=== PATIENT | female | born 1970 | race Caucasian/White ===

== ENCOUNTER 2017-03-18 18:26 | Emergency (ER) | payer OTHER, MEDICAID ==
[~2017-03-18] VITALS: Ht 172.7 cm; Wt 90.8 kg
[~2017-03-18 18:26] MED LIST: BACL20TA PO; CLIN150 PO; CYMB60CA PO; HYDR-3533 PO; HYDR10SO PO; IBUP800T23 PO; QUET1TAB67 PO
[2017-03-18 18:28] VITALS: BP 123/64; PULSE 117; RESP 14; TEMP 99; O2SAT 97
--- NOTE | 2017-03-18 18:51 | PD ---
HPI Chief Complaint: Psychiatric Symptoms Time Seen by Provider: 18:38 Travel History International Travel<30 days: No Contact w/Intl Traveler<30days: No Traveled to known affect area: No History of Present Illness HPI The patient is 46 years old. She reports abusing multiple drugs including cocaine and opioids. She reports suicidal ideation. She reports a plan that includes taking all of her medications. She has overdosed on medications in the past and the suicide gesture. She has no medical complaints. PFSH Past Medical History Arthritis: Yes (hips legs ankles) Asthma: No Autoimmune Disease: No Blood Disorders: No Anxiety: Yes Depression: No Heart Rhythm Problems: No Cancer: Yes (possible colon) Cardiovascular Problems: No High Cholesterol: Yes Chemotherapy: No Chest Pain: No Congestive Heart Failure: No COPD: No Cerebrovascular Accident: No Diabetes: No Diminished Hearing: No Endocrine: No Gastrointestinal Disorders: Yes (alot of pain with having a bowel movement with small amt blood) GERD: Yes Glaucoma: No Genitourinary: No Headaches: Yes Hepatitis: No Hiatal Hernia: No Heparin Induced Thrombocytopen: No Hypertension: No Immune Disorder: No Implanted Vascular Access Dvce: No Kidney Stones: No Musculoskeletal: Yes (left sprained knee osteoporsis herniated,bulging disc in the back) Neurologic: Yes (numbness pain radiating from both shoulder right arm goes numb ) Psychiatric: Yes (bi polar) Reproductive: No Respiratory: No Migraines: Yes (3 yrs) Myocardial Infarction: No Radiation Therapy: No Renal Failure: No Seizures: No Sickle Cell Disease: No Sleep Apnea: No Thyroid Disease: No Ulcer: Yes ?: Not Past Surgical History Abdominal Surgery: Yes (lap katt) AICD: No Appendectomy: No Arteriovenous Shunt: No Cardiac Surgery: No Cholecystectomy: No Ear Surgery: No Endocrine Surgery: No Eye Surgery: No Genitourinary Surgery: No Gynecologic Surgery: Yes (left ovary removed) Insulin Pump: No Joint Replacement: No Neurologic Surgery: No Oral Surgery: No Pacemaker: No Thoracic Surgery: No Other Surgery: Yes Social History Alcohol Use: Yes (6 beers a day) Tobacco Use: Yes (1/2 PACK A DAY FOR 5 YEARS) Substance Use: No Allergies-Medications (Allergen,Severity, Reaction): Coded Allergies: morphine (Unverified Allergy, Severe, 02/08/17) DENIES codeine (Unverified Allergy, Mild, NAUSEA, 02/08/17) penicillin G (Unverified Allergy, Mild, Rash, 02/08/17) Reported Meds & Prescriptions Reported Meds & Active Scripts Active Bactrim DS (Sulfamethoxazole-Trimethoprim) 800-160 Mg Tab 1 Tab PO BID Lortab 5 mg/325 mg (Hydrocodone/Acetaminophen 5 mg/325 mg) 1 Tab 1 Tab PO Q6H PRN Cleocin (Clindamycin HCl) 150 Mg Cap 300 Mg PO 3 TIMES A DAY 10 Days Ibuprofen 800 Mg Tab 800 Mg PO TID Reported Hydrocodone/Acetaminophen (Miscellaneous Medication) 1 Tab 15 Mg PO Q4H PRN Cymbalta (Duloxetine HCl) 60 Mg Cap 60 Mg PO BID Lioresal 20 Mg Tab (Baclofen) 20 Mg Tab 120 Mg PO TID Seroquel (Quetiapine Fumarate) 25 Mg Tab 800 Mg PO HS UNKNOWN DOSE Review of Systems Except as stated in HPI: all other systems reviewed are Neg General / Constitutional: No: Fever Physical Exam Narrative GENERAL: 46 yo F, NAD, WNWD SKIN: Warm and dry. HEAD: Atraumatic. Normocephalic. EYES: Pupils equal and round. No scleral icterus. No injection or drainage. ENT: No nasal bleeding or discharge. Mucous membranes pink and moist. NECK: Trachea midline. No JVD. CARDIOVASCULAR: Regular rate and rhythm. RESPIRATORY: No accessory muscle use. Clear to auscultation. Breath sounds equal bilaterally. GASTROINTESTINAL: Abdomen soft, non-tender, nondistended. Hepatic and splenic margins not palpable. MUSCULOSKELETAL: Extremities without clubbing, cyanosis, or edema. No obvious deformities. NEUROLOGICAL: Awake and alert. No obvious cranial nerve deficits. Motor grossly within normal limits. Five out of 5 muscle strength in the arms and legs. Normal speech. PSYCHIATRIC: +SI. +HI. Data Data Last Documented VS Vital Signs Date Time Temp Pulse Resp B/P (MAP) Pulse Ox O2 Delivery O2 Flow Rate FiO2 03/18/17 18:28 99.0 117 14 123/64 (83) 97 VS reviewed Orders Orders Complete Blood Count With Diff (03/18/17 20:11) Comprehensive Metabolic Panel (03/18/17 20:11) Urinalysis - C+S If Indicated (03/18/17 20:11) Psych Screen (03/18/17 20:11) Diet Regular Basic (03/19/17 Breakfast) Drug Screen, Random Urine (03/18/17 20:11) Urine Culture (03/18/17 18:54) Ciprofloxacin (Cipro) (03/18/17 21:00) Sulfamet-Trimeth Ds 800-160 Mg (Bactrim (03/18/17 21:00) Potassium Chloride (Kcl) (03/18/17 21:30) Labs Laboratory Tests Test 03/18/17 18:54 White Blood Count 11.6 TH/MM3 Red Blood Count 4.22 MIL/MM3 Hemoglobin 14.6 GM/DL Hematocrit 43.7 % Mean Corpuscular Volume 103.7 FL Mean Corpuscular Hemoglobin 34.6 PG Mean Corpuscular Hemoglobin Concent 33.4 % Red Cell Distribution Width 13.8 % Platelet Count 231 TH/MM3 Mean Platelet Volume 9.0 FL Neutrophils (%) (Auto) 78.1 % Lymphocytes (%) (Auto) 17.6 % Monocytes (%) (Auto) 3.3 % Eosinophils (%) (Auto) 0.9 % Basophils (%) (Auto) 0.1 % Neutrophils # (Auto) 9.0 TH/MM3 Lymphocytes # (Auto) 2.0 TH/MM3 Monocytes # (Auto) 0.4 TH/MM3 Eosinophils # (Auto) 0.1 TH/MM3 Basophils # (Auto) 0.0 TH/MM3 CBC Comment DIFF FINAL Differential Comment Urine Color YELLOW Urine Turbidity CLEAR Urine pH 5.5 Urine Specific [place] 1.005 Urine Protein NEG mg/dL Urine Glucose (UA) NEG mg/dL Urine Ketones NEG mg/dL Urine Occult Blood NEG Urine Nitrite POS Urine Bilirubin NEG Urine Urobilinogen LESS THAN 2.0 MG/DL Urine Leukocyte Esterase NEG Urine WBC 2 /hpf Urine Squamous Epithelial Cells <1 /hpf Urine Bacteria MOD /hpf Microscopic Urinalysis Comment CULTURE INDICATED Blood Urea Nitrogen 7 MG/DL Creatinine 0.68 MG/DL Random Glucose 113 MG/DL Total Protein 7.3 GM/DL Albumin 3.7 GM/DL Calcium Level 9.4 MG/DL Alkaline Phosphatase 153 U/L Aspartate Amino Transf (AST/SGOT) 19 U/L Alanine Aminotransferase (ALT/SGPT) 29 U/L Total Bilirubin 0.2 MG/DL Sodium Level 144 MEQ/L Potassium Level 2.9 MEQ/L Chloride Level 111 MEQ/L Carbon Dioxide Level 23.5 MEQ/L Anion Gap 10 MEQ/L Estimat Glomerular Filtration Rate 92 ML/MIN Urine Opiates Screen NEG Urine Barbiturates Screen NEG Urine Amphetamines Screen NEG Urine Benzodiazepines Screen POS Urine Cocaine Screen NEG Urine Cannabinoids Screen NEG MDM Medical Decision Making Medical Screen Exam Complete: Yes Emergency Medical Condition: Yes Medical Record Reviewed: Yes Differential Diagnosis Altered mental status/psychosis due to infection/environmental exposure/ metabolic abnormality, polypharmacy, alcohol abuse/intoxication, illicit or prescribed drug abuse, malingering/secondary gain, non-organic psychiatric disease Narrative Course CBC & BMP Diagram 03/18/17 18:54 Total Protein 7.3, Albumin 3.7, Calcium Level 9.4, Alkaline Phosphatase 153 H, Aspartate Amino Transf (AST/SGOT) 19, Alanine Aminotransferase (ALT/SGPT) 29, Total Bilirubin 0.2 UA: UTI present Tox screen: + Benzos Pt is medically stable for psychiatry screen. Potassium replenished. Bactrim DS here. Bactrim DS script. Diagnosis Primary Impression: Polysubstance abuse Additional Impression: Suicidal ideation Scripts Sulfamethoxazole-Trimethoprim (Bactrim DS) 800-160 Mg Tab 1 TAB PO BID for Infection, #6 TAB 0 Refills Prov: Severino Coelho MD 03/18/17 Severino Coelho MD Mar 18, 2017 18:51
[2017-03-18 20:23] LABS: BASOPHIL % 0.1 % (0.0-2.0); EOSINOPHIL # 0.1 TH/MM3 (0-0.4); EOSINOPHIL % 0.9 % (0.0-4.0); HEMATOCRIT 43.7 % (35.0-46.0); HEMO FLAGS DIFF FINAL; LYMPH % 17.6 % (9.0-44.0); MEAN CELL VOLUME 103.7 FL (80.0-100.0); MEAN CORPUSCULAR HEMOGLOBIN 34.6 PG (27.0-34.0); MEAN CORPUSCULAR HGB CONC 33.4 % (32.0-36.0); MONO % 3.3 % (0.0-8.0); NEUT % 78.1 % (16.0-70.0); PLATELET COUNT 231 TH/MM3 (150-450); RED BLOOD COUNT 4.22 MIL/MM3 (4.00-5.30); RED CELL DISTRIBUTION WIDTH 13.8 % (11.6-17.2); WHITE BLOOD COUNT 11.6 TH/MM3 (4.0-11.0)
[2017-03-18 20:39] LABS: BACTERIA, URINE MOD /hpf; BLOOD, URINE NEG (NEG); COMMENT (UR) CULTURE INDICATED; CULTURE IF INDICATED CULTURE INDICATED; GLUCOSE,URINE NEG (NEG); KETONE, URINE NEG (NEG); NITRITE,URINE POS (NEG); PH, URINE 5.5 (5.0-8.5); SQUAMOUS EPITHELIAL CELL URINE <1 /hpf (0-5); URINE COLOR YELLOW (YELLW/STRAW)
[2017-03-18] MEDS ORDERED: BACT800T5 PO (20:56)
[2017-03-18] MEDS ORDERED: CIPROFLOXACIN 500 MG TAB PO ONE (21:00)
[2017-03-18] MEDS ORDERED: SULFAMETHOXAZOLE-TRIMETHOPRIM DS 800-160 MG TAB PO ONE (21:00)
[2017-03-18 21:09] LABS: ALKALINE PHOSPHATASE 153 U/L (45-117); ALT (GPT) 29 U/L (10-53); ANION GAP 10 MEQ/L (5-15); AST (GOT) 19 U/L (15-37); BICARBONATE 23.5 MEQ/L (21.0-32.0); BLOOD UREA NITROGEN 7 MG/DL (7-18); CHLORIDE 111 MEQ/L (98-107); GLOMERULAR FILTRATION RATE 92 ML/MIN (>89); SODIUM (NA) 144 MEQ/L (136-145); TOTAL BILIRUBIN ADULT 0.2 MG/DL (0.2-1.0)
[2017-03-18 21:24] LABS: POTASSIUM 2.9 MEQ/L (3.5-5.1)
[2017-03-18] MEDS ORDERED: POTASSIUM CHLORIDE 20 MEQ CONTROLLED RELEASE TAB PO ONE (21:30)
[2017-03-18 23:01] VITALS: BP 125/81; PULSE 107; RESP 18; O2SAT 94
[2017-03-19 02:03] VITALS: BP 113/65; PULSE 98; RESP 19; O2SAT 95
[2017-03-19 06:13] VITALS: BP 135/89; PULSE 88; RESP 19; O2SAT 94
[2017-03-19 11:02] VITALS: BP 144/88; PULSE 90; RESP 18; TEMP 97.6; O2SAT 96
--- NOTE | 2017-03-19 14:10 | PD ---
History of Present Illness Chief Complaint: Psychiatric Symptoms Time Seen by Provider: 13:45 Travel History International Travel<30 Days: No Contact w/Intl Traveler<30days: No Known affected area: No Legal Status Legal Status: Voluntary History of Present Illness: History of Present Illness HPI The patient is 46 years old female with history of bipolar disorder who presents to the ED on a voluntary basis requesting a psychiatric evaluation. She reported to ED that she was abusing multiple drugs including cocaine and opioids but denies this to this sports book writer. She states that there was some arguments with family members in the house that she lives and that she became overwhelmed and fearful that she may react aggressively towards family members or towards herself. She states " before anything happened I came to the hospital for some time as I needed to get away from all that was going on". She denies any previous history of harming anyone else or herself. Reports medication compliance. The patient was monitored in the ED and J pod and she did not present any behavioral dysregulation. EMR is reviewed. No previous contact with [facility] psychiatry. Toxicology is positive for benzos which are prescribed. She is alert, oriented, calm and cooperative. Speech is clear, no pressure. maintaining basic hygiene. and does not present any roberto or any acute psychotic symptoms. PFSH Past Medical History Arthritis: Yes (hips legs ankles) Asthma: No Autoimmune Disease: No Blood Disorders: No Anxiety: Yes Depression: No Heart Rhythm Problems: No Cancer: Yes (possible colon) Cardiovascular Problems: No High Cholesterol: Yes Chemotherapy: No Chest Pain: No Congestive Heart Failure: No COPD: No Cerebrovascular Accident: No Diabetes: No Diminished Hearing: No Endocrine: No Gastrointestinal Disorders: Yes (alot of pain with having a bowel movement with small amt blood) GERD: Yes Glaucoma: No Genitourinary: No Headaches: Yes Hepatitis: No Hiatal Hernia: No Heparin Induced Thrombocytopen: No Hypertension: No Immune Disorder: No Implanted Vascular Access Dvce: No Kidney Stones: No Musculoskeletal: Yes (left sprained knee osteoporsis herniated,bulging disc in the back) Neurologic: Yes (numbness pain radiating from both shoulder right arm goes numb ) Psychiatric: Yes (bi polar) Reproductive: No Respiratory: No Migraines: Yes (3 yrs) Myocardial Infarction: No Radiation Therapy: No Renal Failure: No Seizures: No Sickle Cell Disease: No Sleep Apnea: No Thyroid Disease: No Ulcer: Yes ?: Unknown Past Surgical History Abdominal Surgery: Yes (lap katt) AICD: No Appendectomy: No Arteriovenous Shunt: No Cardiac Surgery: No Cholecystectomy: No Ear Surgery: No Endocrine Surgery: No Eye Surgery: No Genitourinary Surgery: No Gynecologic Surgery: Yes (left ovary removed) Insulin Pump: No Joint Replacement: No Neurologic Surgery: No Oral Surgery: No Pacemaker: No Thoracic Surgery: No Other Surgery: Yes Psychiatric History Psychiatric History Hx Psychiatric Treatment: receives care at [facility] Has been to [facility] History of Inpatient Treatment: Yes ([facility]) Guns or firearms in home: No Social History Single female, lives with her girlfriend x 15 years. On disability Hx Alcohol Use: Yes Hx Tobacco Use: Yes Hx Substance Use: Yes Substance Use Type: Crack, Cocaine Other Substances Used: Currently not using substances. Hx of Substance Use Treatment: No Family Psychiatric History Negative Allergies-Medications (Allergen,Severity, Reaction): Coded Allergies: morphine (Unverified Allergy, Severe, 02/08/17) DENIES codeine (Unverified Allergy, Mild, NAUSEA, 02/08/17) penicillin G (Unverified Allergy, Mild, Rash, 02/08/17) Reported Meds & Prescriptions Reported Meds & Active Scripts Active Bactrim DS (Sulfamethoxazole-Trimethoprim) 800-160 Mg Tab 1 Tab PO BID Lortab 5 mg/325 mg (Hydrocodone/Acetaminophen 5 mg/325 mg) 1 Tab 1 Tab PO Q6H PRN Cleocin (Clindamycin HCl) 150 Mg Cap 300 Mg PO 3 TIMES A DAY 10 Days Ibuprofen 800 Mg Tab 800 Mg PO TID Reported Hydrocodone/Acetaminophen (Miscellaneous Medication) 1 Tab 15 Mg PO Q4H PRN Cymbalta (Duloxetine HCl) 60 Mg Cap 60 Mg PO BID Lioresal 20 Mg Tab (Baclofen) 20 Mg Tab 120 Mg PO TID Seroquel (Quetiapine Fumarate) 25 Mg Tab 800 Mg PO HS UNKNOWN DOSE Review of Systems Except as stated in HPI: all other systems reviewed are Neg Exam Alert: Yes Webster: Person (ox4) Mood: Anxious Affect: Appropriate Speech: Clear, Logical Eye Contact: Normal Memory Intact: Comment (No impairment) Hallucinations: Other (Not at present) Delusions: No Suicidal: Ideation (Negative) Homicidal: Ideation (Negative) Insight/Judgement Fair. Not impaired. MDM Medical Decision Making Medical Record Reviewed: Yes Assessment/Plan The patient is 46 years old female with history of bipolar disorder who presents to the ED on a voluntary basis requesting a psychiatric evaluation. She states that there was some arguments with family members in the house that she lives and that she became overwhelmed and fearful that she may react aggressively towards family members or towards herself. She states " before anything happened I came to the hospital for some time as I needed to get away from all that was going on". She denies any previous history of harming anyone else or herself. Reports medication compliance. Patient while in J p presented no behavioral concerns and no agitation. She is requesting discharge and does not meet criteria for inpatient psychiatric treatment. Sin e she has been here she has talked with her girlfriend as well as with other family members and that have cleared up the issues that they were arguing about. She is psychiatrically clear for discharge from ED. Continue follow up with her outpatient provider. Orders Orders Complete Blood Count With Diff (03/18/17 20:11) Comprehensive Metabolic Panel (03/18/17 20:11) Urinalysis - C+S If Indicated (03/18/17 20:11) Psych Screen (03/18/17 20:11) Diet Regular Basic (03/19/17 Breakfast) Drug Screen, Random Urine (03/18/17 20:11) Urine Culture (03/18/17 18:54) Ciprofloxacin (Cipro) (03/18/17 21:00) Sulfamet-Trimeth Ds 800-160 Mg (Bactrim (03/18/17 21:00) Potassium Chloride (Kcl) (03/18/17 21:30) Diet Regular Basic (03/19/17 Lunch) Results Vital Signs Date Time Temp Pulse Resp B/P (MAP) Pulse Ox O2 Delivery O2 Flow Rate FiO2 03/19/17 11:02 97.6 90 18 144/88 (106) 96 03/19/17 06:13 88 19 135/89 (104) 94 03/19/17 02:03 98 19 113/65 (81) 95 Room Air 03/18/17 23:01 107 18 125/81 (96) 94 03/18/17 22:43 03/18/17 18:28 99.0 117 14 123/64 (83) 97 Laboratory Tests Test 03/18/17 18:54 White Blood Count 11.6 Red Blood Count 4.22 Hemoglobin 14.6 Hematocrit 43.7 Mean Corpuscular Volume 103.7 Mean Corpuscular Hemoglobin 34.6 Mean Corpuscular Hemoglobin Concent 33.4 Red Cell Distribution Width 13.8 Platelet Count 231 Mean Platelet Volume 9.0 Neutrophils (%) (Auto) 78.1 Lymphocytes (%) (Auto) 17.6 Monocytes (%) (Auto) 3.3 Eosinophils (%) (Auto) 0.9 Basophils (%) (Auto) 0.1 Neutrophils # (Auto) 9.0 Lymphocytes # (Auto) 2.0 Monocytes # (Auto) 0.4 Eosinophils # (Auto) 0.1 Basophils # (Auto) 0.0 CBC Comment DIFF FINAL Differential Comment Urine Color YELLOW Urine Turbidity CLEAR Urine pH 5.5 Urine Specific [place] 1.005 Urine Protein NEG Urine Glucose (UA) NEG Urine Ketones NEG Urine Occult Blood NEG Urine Nitrite POS Urine Bilirubin NEG Urine Urobilinogen LESS THAN 2.0 Urine Leukocyte Esterase NEG Urine WBC 2 Urine Squamous Epithelial Cells <1 Urine Bacteria MOD Microscopic Urinalysis Comment CULTURE INDICATED Blood Urea Nitrogen 7 Creatinine 0.68 Random Glucose 113 Total Protein 7.3 Albumin 3.7 Calcium Level 9.4 Alkaline Phosphatase 153 Aspartate Amino Transf (AST/SGOT) 19 Alanine Aminotransferase (ALT/SGPT) 29 Total Bilirubin 0.2 Sodium Level 144 Potassium Level 2.9 Chloride Level 111 Carbon Dioxide Level 23.5 Anion Gap 10 Estimat Glomerular Filtration Rate 92 Urine Opiates Screen NEG Urine Barbiturates Screen NEG Urine Amphetamines Screen NEG Urine Benzodiazepines Screen POS Urine Cocaine Screen NEG Urine Cannabinoids Screen NEG Date/Time Source Procedure Growth Status 03/18/17 18:54 Urine Clean Catch Urine Culture Pending Worksheet Diagnosis Primary Impression: Bipolar disorder Ruled Out: Suicidal ideation Med/ Other Pt Specific Info: No Change to Meds Prescriptions Sulfamethoxazole-Trimethoprim (Bactrim DS) 800-160 Mg Tab 1 TAB PO BID for Infection, #6 TAB 0 Refills Prov: Severino Coelho MD 03/18/17 Disposition: 01 DISCHARGE HOME Condition: Stable Problem Qualifiers Primary Impression: Bipolar disorder Qualified Codes: F31.31 - Bipolar disorder, current episode depressed, mild Debbi Dixon Mar 19, 2017 14:09
--- NOTE | 2017-03-19 14:13 | PD ---
Physical Exam Date Seen by Provider: Mar 19, 2017 Time Seen by Provider: 14:09 Narrative For full history and physical examination please see previous provider's notes. Data Data Last Documented VS Vital Signs Date Time Temp Pulse Resp B/P (MAP) Pulse Ox O2 Delivery O2 Flow Rate FiO2 03/19/17 11:02 97.6 90 18 144/88 (106) 96 03/19/17 02:03 Room Air Orders Orders Complete Blood Count With Diff (03/18/17 20:11) Comprehensive Metabolic Panel (03/18/17 20:11) Urinalysis - C+S If Indicated (03/18/17 20:11) Psych Screen (03/18/17 20:11) Diet Regular Basic (03/19/17 Breakfast) Drug Screen, Random Urine (03/18/17 20:11) Urine Culture (03/18/17 18:54) Ciprofloxacin (Cipro) (03/18/17 21:00) Sulfamet-Trimeth Ds 800-160 Mg (Bactrim (03/18/17 21:00) Potassium Chloride (Kcl) (03/18/17 21:30) Diet Regular Basic (03/19/17 Lunch) Labs Laboratory Tests Test 03/18/17 18:54 White Blood Count 11.6 TH/MM3 Red Blood Count 4.22 MIL/MM3 Hemoglobin 14.6 GM/DL Hematocrit 43.7 % Mean Corpuscular Volume 103.7 FL Mean Corpuscular Hemoglobin 34.6 PG Mean Corpuscular Hemoglobin Concent 33.4 % Red Cell Distribution Width 13.8 % Platelet Count 231 TH/MM3 Mean Platelet Volume 9.0 FL Neutrophils (%) (Auto) 78.1 % Lymphocytes (%) (Auto) 17.6 % Monocytes (%) (Auto) 3.3 % Eosinophils (%) (Auto) 0.9 % Basophils (%) (Auto) 0.1 % Neutrophils # (Auto) 9.0 TH/MM3 Lymphocytes # (Auto) 2.0 TH/MM3 Monocytes # (Auto) 0.4 TH/MM3 Eosinophils # (Auto) 0.1 TH/MM3 Basophils # (Auto) 0.0 TH/MM3 CBC Comment DIFF FINAL Differential Comment Urine Color YELLOW Urine Turbidity CLEAR Urine pH 5.5 Urine Specific [place] 1.005 Urine Protein NEG mg/dL Urine Glucose (UA) NEG mg/dL Urine Ketones NEG mg/dL Urine Occult Blood NEG Urine Nitrite POS Urine Bilirubin NEG Urine Urobilinogen LESS THAN 2.0 MG/DL Urine Leukocyte Esterase NEG Urine WBC 2 /hpf Urine Squamous Epithelial Cells <1 /hpf Urine Bacteria MOD /hpf Microscopic Urinalysis Comment CULTURE INDICATED Blood Urea Nitrogen 7 MG/DL Creatinine 0.68 MG/DL Random Glucose 113 MG/DL Total Protein 7.3 GM/DL Albumin 3.7 GM/DL Calcium Level 9.4 MG/DL Alkaline Phosphatase 153 U/L Aspartate Amino Transf (AST/SGOT) 19 U/L Alanine Aminotransferase (ALT/SGPT) 29 U/L Total Bilirubin 0.2 MG/DL Sodium Level 144 MEQ/L Potassium Level 2.9 MEQ/L Chloride Level 111 MEQ/L Carbon Dioxide Level 23.5 MEQ/L Anion Gap 10 MEQ/L Estimat Glomerular Filtration Rate 92 ML/MIN Urine Opiates Screen NEG Urine Barbiturates Screen NEG Urine Amphetamines Screen NEG Urine Benzodiazepines Screen POS Urine Cocaine Screen NEG Urine Cannabinoids Screen NEG MDM Medical Record Reviewed: Yes Supervised Visit with [facility]: No Narrative Course Patient is a 46-year-old female that presented voluntarily to the emergency department for psychiatric evaluation. She was seen and evaluated by emergency physician, she was medically cleared. She was then seen and evaluated by psychiatric nurse practitioner. Patient was deemed competent to be discharged home. Diagnosis Primary Impression: Polysubstance abuse Additional Impressions: Suicidal ideation Urinary tract infection Qualified Codes: N39.0 - Urinary tract infection, site not specified Referrals: Primary Care Physician Patient Instructions: General Instructions, Polysubstance Abuse (ED) Additional Instruction: Follow-up with her primary doctor Complete full course of antibiotics as prescribed Increase fluid intake Avoid illicit drug use Return to emergency department for any new or worsening symptoms Med/Other Pt SpecificInfo: Prescription(s) given Scripts Sulfamethoxazole-Trimethoprim (Bactrim DS) 800-160 Mg Tab 1 TAB PO BID for Infection, #6 TAB 0 Refills Prov: Severino Coelho MD 03/18/17 Disposition: 01 DISCHARGE HOME Condition: Stable Jessica Lomas Cindy SMITH Mar 19, 2017 14:13
== END 2017-03-19 14:58 | disposition home or self-care (01) ==
LOC: NEPD 18:26 → NEPJ 03-19 14:58
DX: F19.10 Other psychoactive substance abuse, uncomplicated (principal); N39.0 Urinary tract infection, site not specified; B96.20 Unspecified Escherichia coli [E. coli] as the cause of diseases classified elsewhere; F31.31 Bipolar disorder, current episode depressed, mild; F17.200 Nicotine dependence, unspecified, uncomplicated; Z79.899 Other long term (current) drug therapy
CPT/HCPCS: 80053; 80307; 81001; 85025; 87077; 87086; 87186; 99284

== ENCOUNTER 2017-11-20 13:41 | Emergency (ER) | payer OTHER, MEDICAID ==
[~2017-11-20] VITALS: Ht 162.6 cm; Wt 100.0 kg
[~2017-11-20 13:41] MED LIST changes: +BACT800T5 PO
[2017-11-20 13:57] VITALS: BP 173/83; PULSE 102; RESP 20; TEMP 98.5; O2SAT 98
--- NOTE | 2017-11-20 14:30 | PD ---
HPI Chief Complaint: Altered Mental Status Time Seen by Provider: 14:09 Travel History International Travel<30 days: No Contact w/Intl Traveler<30days: No Traveled to known affect area: No History of Present Illness HPI 47-year-old female complains of confusion, disorientation, nausea vomiting diarrhea, abdominal pain, sacrum coccyx pain, left leg pain. Patient states that she was seen by local physician last week and had routine blood work done. Patient was informed by her physician that she had some kind of blood infection and was given a shot antibiotic in the office and given a bottle of pills to take for the infection. Patient does not know the name of the medications. Patient states that she was told that was antibiotic. Patient started having disorientation and confusion since last night. Patient states that she has nausea also. Patient denies any headache. Patient denies any chest pain or shortness of breath. Patient states that she has intermittent low abdominal cramping with nausea vomiting diarrhea for the past 3 days. Patient denies any dysuria frequency. Patient denies any vaginal discharge or bleeding. Patient states that she fell 2 days ago and injured her left leg in the buttock also. Patient complains sharp pain localized to the buttock area and left lower leg. Patient complains of bruising to left lower leg also. Patient has history of bipolar disorder and schizophrenia. Patient denies any alcohol or substance abuse. PFSH Past Medical History Arthritis: Yes (hips legs ankles) Asthma: No Autoimmune Disease: No Blood Disorders: No Bipolar Disorder: Yes Anxiety: Yes Depression: No Heart Rhythm Problems: No Cancer: Yes (denies ) Cardiovascular Problems: No High Cholesterol: Yes Chemotherapy: No Chest Pain: No Congestive Heart Failure: No COPD: No Cerebrovascular Accident: No Diabetes: No Diminished Hearing: No Endocrine: No Gastrointestinal Disorders: Yes (alot of pain with having a bowel movement with small amt blood) GERD: Yes Glaucoma: No Genitourinary: No Headaches: Yes Hepatitis: No Hiatal Hernia: No Heparin Induced Thrombocytopen: No Hypertension: No Immune Disorder: No Implanted Vascular Access Dvce: No Kidney Stones: No Musculoskeletal: Yes (left sprained knee osteoporsis herniated,bulging disc in the back) Neurologic: Yes (numbness pain radiating from both shoulder right arm goes numb ) Psychiatric: Yes Reproductive: No Respiratory: No Migraines: Yes Myocardial Infarction: No Radiation Therapy: No Renal Failure: No Schizophrenia: Yes Seizures: No Sickle Cell Disease: No Sleep Apnea: No Thyroid Disease: No Ulcer: Yes ?: Not Past Surgical History Abdominal Surgery: Yes (lap katt) AICD: No Appendectomy: No Arteriovenous Shunt: No Cardiac Surgery: No Cholecystectomy: No Ear Surgery: No Endocrine Surgery: No Eye Surgery: No Genitourinary Surgery: No Gynecologic Surgery: Yes (left ovary removed) Insulin Pump: No Joint Replacement: No Neurologic Surgery: No Oral Surgery: No Pacemaker: No Thoracic Surgery: No Other Surgery: Yes Social History Alcohol Use: Yes (occassianly ) Tobacco Use: Yes (pack a day ) Substance Use: Yes Allergies-Medications (Allergen,Severity, Reaction): Coded Allergies: morphine (Unverified Allergy, Severe, 02/08/17) DENIES codeine (Unverified Allergy, Mild, NAUSEA, 02/08/17) penicillin G (Unverified Allergy, Mild, Rash, 02/08/17) Reported Meds & Prescriptions Reported Meds & Active Scripts Active Bactrim DS (Sulfamethoxazole-Trimethoprim) 800-160 Mg Tab 1 Tab PO BID Lortab 5 mg/325 mg (Hydrocodone/Acetaminophen 5 mg/325 mg) 1 Tab 1 Tab PO Q6H PRN Cleocin (Clindamycin HCl) 150 Mg Cap 300 Mg PO 3 TIMES A DAY 10 Days Ibuprofen 800 Mg Tab 800 Mg PO TID Reported Hydrocodone/Acetaminophen (Miscellaneous Medication) 1 Tab 15 Mg PO Q4H PRN Cymbalta (Duloxetine HCl) 60 Mg Cap 60 Mg PO BID Lioresal 20 Mg Tab (Baclofen) 20 Mg Tab 120 Mg PO TID Seroquel (Quetiapine Fumarate) 25 Mg Tab 800 Mg PO HS UNKNOWN DOSE Review of Systems General / Constitutional: No: Fever Eyes: No: Visual changes HENT: No: Headaches Cardiovascular: No: Chest Pain or Discomfort Respiratory: No: Shortness of Breath Gastrointestinal: Positive: Nausea, Abdominal Pain Genitourinary: No: Dysuria Musculoskeletal: Positive: Pain Skin: No Rash Neurologic: No: Weakness Psychiatric: No: Depression Endocrine: No: Polydipsia Hematologic/Lymphatic: No: Easy Bruising Physical Exam Narrative GENERAL: Well-nourished, well-developed patient. SKIN: Focused skin assessment warm/dry. HEAD: Normocephalic. EYES: No scleral icterus. No injection or drainage. Pupils 2 mm equal reactive. NECK: Supple, trachea midline. No JVD or lymphadenopathy. CARDIOVASCULAR: Regular rate and rhythm without murmurs, gallops, or rubs. RESPIRATORY: Breath sounds equal bilaterally. No accessory muscle use. GASTROINTESTINAL: Abdomen soft, nondistended. Patient has mild tenderness on palpation of the lower abdomen. No rebound tenderness. No mass. MUSCULOSKELETAL: Patient has mild ecchymosis with tenderness prepatellar area of the right knee. Patient has diffuse ecchymosis with diffuse tenderness over the left lower leg. Range of motion lower extremity. BACK: Nontender without obvious deformity. No CVA tenderness. Data Data Last Documented VS Vital Signs Date Time Temp Pulse Resp B/P (MAP) Pulse Ox O2 Delivery O2 Flow Rate FiO2 11/20/17 14:32 115 16 131/63 (85) 99 Room Air 11/20/17 13:57 98.5 Orders Orders Complete Blood Count With Diff (11/20/17 14:20) Comprehensive Metabolic Panel (11/20/17 14:20) Prothrombin Time / Inr (Pt) (11/20/17 14:20) Act Partial Throm Time (Ptt) (11/20/17 14:20) Urinalysis - C+S If Indicated (11/20/17 14:20) [place] (Li) (11/20/17 14:20) Thyroid Stimulating Hormone (11/20/17 14:20) Chest, Single Ap (11/20/17 14:20) Pelvis, Ap Only (Routine) (11/20/17 14:20) Iv Access Insert/Monitor (11/20/17 14:20) Ecg Monitoring (11/20/17 14:20) Oximetry (11/20/17 14:20) Drug Screen, Random Urine (11/20/17 14:20) Alcohol (Ethanol) (11/20/17 14:20) Sacrum And Coccyx (11/20/17 ) Knee, Ltd (1 Or 2vws) (11/20/17 14:22) Tibia/Fibula (Ap/Lat) (11/20/17 14:22) Lipase (11/20/17 14:26) Ct Abd/Pel W Iv Contrast(Rout) (11/20/17 14:26) Urine Culture (11/20/17 14:30) Iodixanol 320 Inj (Rad Ct) (Visipaque 32 (11/20/17 16:30) Labs Laboratory Tests Test 11/20/17 14:30 White Blood Count 8.4 TH/MM3 Red Blood Count 3.71 MIL/MM3 Hemoglobin 13.3 GM/DL Hematocrit 38.9 % Mean Corpuscular Volume 104.9 FL Mean Corpuscular Hemoglobin 35.9 PG Mean Corpuscular Hemoglobin Concent 34.2 % Red Cell Distribution Width 13.9 % Platelet Count 253 TH/MM3 Mean Platelet Volume 8.7 FL Neutrophils (%) (Auto) 81.4 % Lymphocytes (%) (Auto) 13.5 % Monocytes (%) (Auto) 3.7 % Eosinophils (%) (Auto) 1.1 % Basophils (%) (Auto) 0.3 % Neutrophils # (Auto) 6.9 TH/MM3 Lymphocytes # (Auto) 1.1 TH/MM3 Monocytes # (Auto) 0.3 TH/MM3 Eosinophils # (Auto) 0.1 TH/MM3 Basophils # (Auto) 0.0 TH/MM3 CBC Comment DIFF FINAL Differential Comment Prothrombin Time 9.6 SEC Prothromb Time International Ratio 0.9 RATIO Activated Partial Thromboplast Time 23.1 SEC Urine Color YELLOW Urine Turbidity HAZY Urine pH 5.5 Urine Specific [place] 1.017 Urine Protein 30 mg/dL Urine Glucose (UA) NEG mg/dL Urine Ketones NEG mg/dL Urine Occult Blood SMALL Urine Nitrite NEG Urine Bilirubin NEG Urine Urobilinogen LESS THAN 2.0 MG/DL Urine Leukocyte Esterase NEG Urine RBC 2 /hpf Urine WBC 9 /hpf Urine Squamous Epithelial Cells 5 /hpf Urine Transitional Epithelial Cells <1 /hpf Urine Renal Epithelial Cells <1 /hpf Urine Amorphous Sediment RARE Urine Bacteria MOD /hpf Urine Hyaline Casts 5 /lpf Urine Mucus FEW /lpf Microscopic Urinalysis Comment CULTURE INDICATED Blood Urea Nitrogen 19 MG/DL Creatinine 1.63 MG/DL Random Glucose 94 MG/DL Total Protein 7.8 GM/DL Albumin 3.8 GM/DL Calcium Level 9.1 MG/DL Alkaline Phosphatase 91 U/L Aspartate Amino Transf (AST/SGOT) 42 U/L Alanine Aminotransferase (ALT/SGPT) 40 U/L Total Bilirubin 0.4 MG/DL Sodium Level 144 MEQ/L Potassium Level 4.1 MEQ/L Chloride Level 114 MEQ/L Carbon Dioxide Level 22.5 MEQ/L Anion Gap 8 MEQ/L Estimat Glomerular Filtration Rate 34 ML/MIN Thyroid Stimulating Hormone 3rd Gen 1.670 uIU/ML Urine Opiates Screen NEG Urine Barbiturates Screen NEG Urine Amphetamines Screen NEG Urine Benzodiazepines Screen POS [place] Level 0.5 MEQ/L Urine Cocaine Screen POS Urine Cannabinoids Screen NEG Ethyl Alcohol Level LESS THAN 3 MG/DL MDM Medical Decision Making Medical Screen Exam Complete: Yes Emergency Medical Condition: Yes Interpretation(s) 1617 p.m. CBC WBC 8.4. Hemoglobin 13.3 hematocrit 38.9. MCV 104.9. 81 neutrophil. BUN 19. Creatinine 1.63. TSH normal. Urine drug screen positive for benzodiazepine and cocaine. Alcohol negative. [place] 0.5. UA positive for 9 WBC and bacteria. Last Impressions Abdomen/Pelvis CT 11/20/17 1426 Signed Impressions: CONCLUSION: 1. No acute abnormality to explain the patient's pain. 2. Cirrhosis. 3. Stable mild intrahepatic biliary prominence likely a capacitance effect fro m prior cholecystectomy. Tibia/Fibula X-Ray 11/20/17 1422 Signed Impressions: CONCLUSION: Negative examination Knee X-Ray 11/20/17 1422 Signed Impressions: CONCLUSION: Negative examination Pelvis X-Ray 11/20/17 1420 Signed Impressions: CONCLUSION: Negative examination. Chest X-Ray 11/20/17 1420 Signed Impressions: CONCLUSION: 1. No acute intrathoracic abnormality. 2. Old left posterior seventh rib fracture. Sacrum and Coccyx X-Ray 11/20/17 0000 Signed Impressions: CONCLUSION: Nondisplaced fracture at the junction of the sacrum and coccyx. Differential Diagnosis Differential diagnoses including electrolyte imbalance, dehydration, contusion, fracture, substance abuse. Narrative Course 47-year-old female complains of no abdominal pain, nausea, injury to left lower leg and right knee. Patient also complains of disorientation and confusion. Diagnosis Primary Impression: UTI (urinary tract infection) Qualified Codes: N30.00 - Acute cystitis without hematuria Additional Impressions: Substance abuse Abdominal colic Contusion of left leg Qualified Codes: S80.12XA - Contusion of left lower leg, initial encounter Contusion of right knee Qualified Codes: S80.01XA - Contusion of right knee, initial encounter Patient Instructions: General Instructions Additional Instructions: Bactrim DS as directed. Advised patient to follow with local physician. Return if worse. Zofran as needed for nausea vomiting. Tylenol as needed for pain. Med/Other Pt SpecificInfo: Prescription(s) given Scripts Sulfamethoxazole-Trimethoprim (Bactrim DS) 800-160 Mg Tab 1 TAB PO BID for Infection, #6 TAB 0 Refills Prov: Bradly Abdi MD 11/20/17 Ondansetron Odt (Zofran Odt) 4 Mg Tab 4 MG SL Q6HR Y for Nausea/Vomiting, #10 TAB 0 Refills Prov: Bradly Abdi MD 11/20/17 Disposition: 01 DISCHARGE HOME Condition: Stable Bradly Abdi MD November 20, 2017 14:30
[2017-11-20 14:32] VITALS: BP 131/63; PULSE 115; RESP 16; O2SAT 99
[2017-11-20 14:49] LABS: AUTOMATED NEUTROPHIL # 6.9 TH/MM3 (1.8-7.7); BASOPHIL % 0.3 % (0.0-2.0); EOSINOPHIL # 0.1 TH/MM3 (0-0.4); EOSINOPHIL % 1.1 % (0.0-4.0); HEMATOCRIT 38.9 % (35.0-46.0); HEMOGLOBIN 13.3 GM/DL (11.6-15.3); LYMPH % 13.5 % (9.0-44.0); LYMPHOCYTE # 1.1 TH/MM3 (1.0-4.8); MEAN CELL VOLUME 104.9 FL (80.0-100.0); MEAN CORPUSCULAR HEMOGLOBIN 35.9 PG (27.0-34.0); MEAN CORPUSCULAR HGB CONC 34.2 % (32.0-36.0); MEAN PLATELET VOLUME 8.7 FL (7.0-11.0); MONO % 3.7 % (0.0-8.0); MONOCYTE # 0.3 TH/MM3 (0-0.9); NEUT % 81.4 % (16.0-70.0); PLATELET COUNT 253 TH/MM3 (150-450); RED BLOOD COUNT 3.71 MIL/MM3 (4.00-5.30); RED CELL DISTRIBUTION WIDTH 13.9 % (11.6-17.2); WHITE BLOOD COUNT 8.4 TH/MM3 (4.0-11.0)
[2017-11-20 15:02] LABS: AMORPHOUS SEDIMENT, URINE RARE; BACTERIA, URINE MOD /hpf; BILIRUBIN, URINE NEG (NEG); BLOOD, URINE SMALL (NEG); GLUCOSE,URINE NEG (NEG); HYALINE CAST, URINE 5 /lpf (RARE); KETONE, URINE NEG (NEG); MUCUS URINE FEW /lpf (OCC); NITRITE,URINE NEG (NEG); PH, URINE 5.5 (5.0-8.5); RENAL EPITHELIAL CELLS <1 /hpf; SQUAMOUS EPITHELIAL CELL URINE 5 /hpf (0-5); TRANSITIONAL EPI CELLS, URINE <1 /hpf; URINE COLOR YELLOW (YELLW/STRAW); URINE LEUKOCYTE ESTERASE NEG (NEG)
[2017-11-20 15:11] LABS: INTERNATIONAL NORMALIZED RATIO 0.9 RATIO; PROTHROMBIN TIME - PATIENT 9.6 SEC (9.8-11.6)
[2017-11-20 15:16] LABS: ALKALINE PHOSPHATASE 91 U/L (45-117); TOTAL BILIRUBIN ADULT 0.4 MG/DL (0.2-1.0); TOTAL PROTEIN 7.8 GM/DL (6.4-8.2)
[2017-11-20 15:18] LABS: ALBUMIN 3.8 GM/DL (3.4-5.0); ALT (GPT) 40 U/L (10-53); AST (GOT) 42 U/L (15-37); BICARBONATE 22.5 MEQ/L (21.0-32.0); BLOOD UREA NITROGEN 19 MG/DL (7-18); CALCIUM 9.1 MG/DL (8.5-10.1); CHLORIDE 114 MEQ/L (98-107); CREATININE 1.63 MG/DL (0.50-1.00); GLOMERULAR FILTRATION RATE 34 ML/MIN (>89); GLUCOSE,RANDOM 94 MG/DL (74-106); SODIUM (NA) 144 MEQ/L (136-145)
--- NOTE | 2017-11-20 15:42 | RADRPT ---
EXAM DATE: 11/20/2017 3:37 PM EDT AGE/SEX: 47 years / Female INDICATIONS: Pain from fall on posterior pelvic area. CLINICAL DATA: This is the patient's initial encounter. Patient reports that signs and symptoms have been present for 1 day and indicates a pain score of 1/10. MEDICAL/SURGICAL HISTORY: None. None. COMPARISON: None. FINDINGS: A single AP view of the chest demonstrates the lungs to be symmetrically aerated without evidence of mass, infiltrate or effusion. The cardiomediastinal contours are unremarkable. Old left posterior se venth rib fracture. CONCLUSION: 1. No acute intrathoracic abnormality. 2. Old left posterior seventh rib fracture. Electronically signed by: Bro Telles MD 11/20/2017 3:41 PM EDT
--- NOTE | 2017-11-20 15:47 | RADRPT ---
EXAM DATE: 11/20/2017 3:39 PM EDT AGE/SEX: 47 years / Female INDICATIONS: Pain from fall on posterior pelvic area. CLINICAL DATA: This is the patient's initial encounter. Patient reports that signs and symptoms have been present for 1 day and indicates a pain score of 9/10. MEDICAL/SURGICAL HISTORY: None. None. COMPARISON: None. FINDINGS: Examination of the pelvis demonstrates no evidence of fracture or dislocation. Bony mineralization i s normal. There is no widening of the sacroiliac joints. No foreign body is identified. CONCLUSION: Negative examination. Electronically signed by: Bro Telles MD 11/20/2017 3:46 PM EDT
--- NOTE | 2017-11-20 15:49 | RADRPT ---
EXAM DATE: 11/20/2017 3:38 PM EDT AGE/SEX: 47 years / Female INDICATIONS: Pain from fall on posterior pelvic area. CLINICAL DATA: This is the patient's initial encounter. Patient reports that signs and symptoms have been present for 1 day and indicates a pain score of 9/10. MEDICAL/SURGICAL HISTORY: None. None. COMPARISON: None. FINDINGS: 3 views of the sacrum and coccyx reveal a nondisplaced fracture through the junction of the sacrum an d coccyx. No angulation or distraction. Sacral ala are intact. Venous calcifications overlie the pelv is.. CONCLUSION: Nondisplaced fracture at the junction of the sacrum and coccyx. Electronically signed by: Bro Telles MD 11/20/2017 3:47 PM EDT
--- NOTE | 2017-11-20 15:49 | RADRPT ---
EXAM DATE: 11/20/2017 3:40 PM EDT AGE/SEX: 47 years / Female INDICATIONS: Pain in right knee from fall on posterior pelvic area. CLINICAL DATA: This is the patient's initial encounter. Patient reports that signs and symptoms have been present for 1 day and indicates a pain score of 6/10. MEDICAL/SURGICAL HISTORY: None. None. COMPARISON: None. FINDINGS: Bony structures are intact and in normal alignment. Joints are intact without dislocation or signifi cant arthropathy. Osseous density is normal. Soft tissues are unremarkable. No radiopaque foreign bodies seen. CONCLUSION: Negative examination Electronically signed by: Bro Telles MD 11/20/2017 3:48 PM EDT
--- NOTE | 2017-11-20 15:52 | RADRPT ---
EXAM DATE: 11/20/2017 3:41 PM EDT AGE/SEX: 47 years / Female INDICATIONS: Pain and bruising on medial side of lower leg from fall on posterior pelvic area. CLINICAL DATA: This is the patient's initial encounter. Patient reports that signs and symptoms have been present for 1 day and indicates a pain score of 4/10. MEDICAL/SURGICAL HISTORY: None. None. COMPARISON: None. FINDINGS: Bony structures are intact and in normal alignment. Osseous density is normal. Soft tissues are unre markable. No radiopaque foreign bodies seen. CONCLUSION: Negative examination Electronically signed by: Bro Telles MD 11/20/2017 3:51 PM EDT
[2017-11-20] MEDS ORDERED: IODIXANOL 320 MG/ML 10 ML VIAL (for Rad CT) IVCONTRAST ONE (16:30)
--- NOTE | 2017-11-20 16:51 | RADRPT ---
EXAM DATE: 11/20/2017 4:32 PM EDT AGE/SEX: 47 years / Female INDICATIONS: Lower abdomen pain with nausea, vomiting and diarrhea today. CLINICAL DATA: This is the patient's initial encounter. Patient reports that signs and symptoms have been present for 1 day and indicates a pain score of 6/10. MEDICAL/SURGICAL HISTORY: Gastroesophageal reflux disease. Cholecystectomy. oophorectomy ORAL CONTRAST: No oral contrast ingested. RADIATION DOSE: 16.09 CTDI (mGy) COMPARISON: CT of the abdomen 12/06/2016 [facility]. TECHNIQUE: Multiple contiguous axial images were obtained through the abdomen and pelvis following b olus infusion of 50 ml Visipaque 320 (iodixanol) nonionic water-soluble contrast as a single exam d ose. No oral contrast ingested. Using automated exposure control and adjustment of the mA and/or kV according to patient size, the radiation dose was kept as low as reasonably achievable to obtain opti mal diagnostic quality images. FINDINGS: Lower Lungs: The visualized lower lungs are clear. Liver: Lobulated contour to the liver. The liver has a mildly heterogeneous background. No discrete m ass observed. Mild prominence to the intrahepatic biliary system. This is all stable from the prior s tudy. Gallbladder surgically absent.. Spleen: Homogeneous density without enlargement. Pancreas: Unremarkable without mass or calcification. Kidneys: Normal in size and shape. No evidence of mass or hydronephrosis. Adrenal Glands: Unremarkable. Aorta: The aorta and proximal iliac vessels are grossly unremarkable without aneurysmal dilation. Bowel/Mesentery: The bowel loops are grossly unremarkable. The cecum and sigmoid colon have a normal configuration. Appendix is normal by CT criteria. Abdominal Wall: Intact. Retroperitoneum: No evidence of adenopathy in the retrocrural, para-aortic, or deep pelvic regions. Bladder: Contours are smooth. Reproductive Organs: Uterus is within the midline. No abnormal masses or calcifications seen. Inguinal: The inguinal region is unremarkable without evidence of adenopathy. Bony Structures: Unremarkable. CONCLUSION: 1. No acute abnormality to explain the patient's pain. 2. Cirrhosis. 3. Stable mild intrahepatic biliary prominence likely a capacitance effect from prior cholecystectom y. Electronically signed by: Bro Telles MD 11/20/2017 4:50 PM EDT
[2017-11-20] MEDS ORDERED: ZOFR4TAB3 SL (17:12)
[2017-11-20] MEDS ORDERED: BACT800T5 PO (17:12)
== END 2017-11-20 17:49 | disposition home or self-care (01) ==
LOC: NEPE 13:41
DX: N30.00 Acute cystitis without hematuria (principal); S80.12XA Contusion of left lower leg, initial encounter; S80.01XA Contusion of right knee, initial encounter; F17.200 Nicotine dependence, unspecified, uncomplicated; F19.10 Other psychoactive substance abuse, uncomplicated; R10.30 Lower abdominal pain, unspecified; F20.9 Schizophrenia, unspecified; M53.3 Sacrococcygeal disorders, not elsewhere classified; F31.9 Bipolar disorder, unspecified; W19.XXXA Unspecified fall, initial encounter; Z79.899 Other long term (current) drug therapy
CPT/HCPCS: 71045; 72170; 72220; 73560; 73590; 74177; 80053; 80178; 80307; 81001; 83690; 84443; 85025; 85610; 85730; 87086; 99285; Q9967